=== PATIENT | male | born 1995 | race Two or more races ===

== ENCOUNTER 2023-10-25 14:02 | Emergency (ER) | payer OTHER ==
[~2023-10-25] VITALS: Ht 157.5 cm; Wt 90.7 kg
== END 2023-10-25 17:20 | disposition home or self-care (01) ==
LOC: ER 14:03
DX: S01.511A Laceration without foreign body of lip, initial encounter (principal); X58.XXXA Exposure to other specified factors, initial encounter; Y93.89 Activity, other specified; Y92.89 Other specified places as the place of occurrence of the external cause; Y99.8 Other external cause status

== ENCOUNTER 2023-11-05 09:37 | Emergency (ER) | payer OTHER ==
[~2023-11-05] VITALS: Ht 172.7 cm; Wt 90.7 kg
== END 2023-11-05 10:26 | disposition home or self-care (01) ==
LOC: ER 09:37
DX: Z48.02 Encounter for removal of sutures (principal)